=== PATIENT | male | born 1990 | race Caucasian/White ===

== ENCOUNTER 2022-02-13 06:11 | Emergency (ER) | payer OTHER ==
[~2022-02-13] VITALS: Ht 172.7 cm; Wt 68.0 kg
[2022-02-13 06:11] VITALS: BP 147/98
[2022-02-13] MEDS ORDERED: CEPH500C PO (08:24)
[2022-02-13] MEDS ORDERED: BACDST PO (08:24)
== END 2022-02-13 08:40 | disposition home or self-care (01) ==
LOC: ER 06:11
DX: S10.96XA Insect bite of unspecified part of neck, initial encounter (principal); S70.362A Insect bite (nonvenomous), left thigh, initial encounter; S70.361A Insect bite (nonvenomous), right thigh, initial encounter; F17.210 Nicotine dependence, cigarettes, uncomplicated; Z79.899 Other long term (current) drug therapy; W57.XXXA Bitten or stung by nonvenomous insect and other nonvenomous arthropods, initial encounter; Y93.89 Activity, other specified; Y92.89 Other specified places as the place of occurrence of the external cause; Y99.8 Other external cause status